=== PATIENT | female | born 1980 | race Caucasian/White ===

== ENCOUNTER 2017-05-21 10:28 | Emergency (ER) | payer OTHER ==
[~2017-05-21] VITALS: Ht 152.4 cm; Wt 64.9 kg
[2017-05-21 11:39] LABS: CALCIUM 8.3 mg/dL (8.5-10.1); CARBON DIOXIDE 26.5 mmol/L (21-32); CHLORIDE SERUM 105 mmol/L (98-107); CREATININE SERUM 0.8 mg/dL (0.6-1.0); GFR1 > 60 mL/min; GLUCOSE SERUM 88 mg/dL (74-106); POTASSIUM SERUM 3.3 mmol/L (3.5-5.1); SODIUM SERUM 136 mmol/L (136-145)
[2017-05-21 11:43] LABS: ALBUMIN 3.5 g/dL (3.4-5.0); ALKALINE PHOSPHATASE 67 U/L (46-116); ALT/SGPT 16 U/L (14-59); AST/SGOT 15 U/L (15-37); BILIRUBIN TOTAL 0.6 mg/dL (0.20-1.00); LIPASE 97 IU/L (73-393); TOTAL PROTEIN, SERUM 7.3 g/dL (6.4-8.2)
[2017-05-21 12:45] VITALS: BP 120/71
== END 2017-05-21 12:45 | disposition home or self-care (01) ==
LOC: ED 10:28
PROVIDERS: Emergency Medicine
DX: B34.9 Viral infection, unspecified (principal); E87.6 Hypokalemia
CPT/HCPCS: 36415; Q0162

== ENCOUNTER 2018-03-18 20:02 | Emergency (ER) | payer OTHER ==
[~2018-03-18] VITALS: Ht 152.4 cm; Wt 68.5 kg
[2018-03-18 20:06] VITALS: Ht 152.4 cm; Wt 68.5 kg
[2018-03-18 21:15] VITALS: BP 128/78
== END 2018-03-18 21:15 | disposition home or self-care (01) ==
LOC: ED 20:02
DX: M54.5 Low back pain (principal)
CPT/HCPCS: J1885

== ENCOUNTER 2018-06-06 17:53 | Emergency (ER) | payer OTHER ==
[~2018-06-06] VITALS: Ht 152.4 cm; Wt 66.7 kg
[2018-06-06 18:01] VITALS: Ht 152.4 cm; Wt 66.7 kg
[2018-06-06 19:26] LABS: CALCIUM 9.3 mg/dL (8.5-10.1); CARBON DIOXIDE 23.1 mmol/L (21-32); CHLORIDE SERUM 105 mmol/L (98-107); CREATININE SERUM 0.8 mg/dL (0.6-1.0); GFR1 > 60 mL/min; GLUCOSE SERUM 81 mg/dL (74-106); POTASSIUM SERUM 3.5 mmol/L (3.5-5.1); SODIUM SERUM 139 mmol/L (136-145)
[2018-06-06 19:49] VITALS: BP 119/73
== END 2018-06-06 19:49 | disposition home or self-care (01) ==
LOC: ED 17:53
PROVIDERS: Emergency Medicine
DX: G44.209 Tension-type headache, unspecified, not intractable (principal); K29.20 Alcoholic gastritis without bleeding
CPT/HCPCS: J0780; J1885; J7030

== ENCOUNTER 2018-12-08 21:14 | Emergency (ER) | payer OTHER ==
[~2018-12-08] VITALS: Ht 152.4 cm; Wt 69.4 kg
[2018-12-08 21:26] VITALS: Ht 152.4 cm; Wt 69.4 kg
[2018-12-08 22:33] LABS: BASOPHIL % 0.3 % (0-2); PLATELET COUNT 388 x10^3mcL (130-400); RED CELL DISTRIBUTION WIDTH 13.6 % (11.5-14.5)
[2018-12-08 22:40] LABS: CALCIUM 9.2 mg/dL (8.5-10.1); CARBON DIOXIDE 32.5 mmol/L (21-32); CHLORIDE SERUM 104 mmol/L (98-107); CREATININE SERUM 0.8 mg/dL (0.6-1.0); GFR1 > 60 mL/min; GLUCOSE SERUM 82 mg/dL (74-106); SODIUM SERUM 141 mmol/L (136-145)
[2018-12-08 22:45] LABS: ALBUMIN 3.9 g/dL (3.4-5.0); ALKALINE PHOSPHATASE 67 U/L (46-116); ALT/SGPT 23 U/L (14-59); AST/SGOT 12 U/L (15-37); BILIRUBIN TOTAL 0.43 mg/dL (0.20-1.00); LIPASE 149 IU/L (73-393)
[2018-12-08 23:12] VITALS: BP 128/73
== END 2018-12-08 23:18 | disposition home or self-care (01) ==
LOC: ED 21:14
PROVIDERS: Emergency Medicine
DX: K29.70 Gastritis, unspecified, without bleeding (principal); E87.6 Hypokalemia
CPT/HCPCS: 36415

== ENCOUNTER 2019-04-11 22:55 | Emergency (ER) | payer OTHER ==
[~2019-04-11] VITALS: Ht 152.4 cm; Wt 67.1 kg
[2019-04-11 23:04] VITALS: Ht 152.4 cm; Wt 67.1 kg
[2019-04-12 00:04] VITALS: BP 126/70
== END 2019-04-12 00:04 | disposition left against medical advice (07) ==
LOC: ED 22:55
DX: Z53.21 Procedure and treatment not carried out due to patient leaving prior to being seen by health care provider (principal)

== ENCOUNTER 2019-04-12 00:06 | Emergency (ER) | payer OTHER ==
[~2019-04-12] VITALS: Ht 152.4 cm; Wt 68.9 kg
[2019-04-12 00:11] VITALS: Ht 152.4 cm; Wt 68.9 kg
[2019-04-12 01:41] LABS: BASOPHIL % 0.2 % (0-2); PLATELET COUNT 373 x10^3mcL (130-400); RED CELL DISTRIBUTION WIDTH 13.6 % (11.5-14.5)
[2019-04-12 01:49] LABS: CALCIUM 9.5 mg/dL (8.5-10.1); CARBON DIOXIDE 28.1 mmol/L (21-32); CREATININE SERUM 1.1 mg/dL (0.6-1.0); POTASSIUM SERUM 3.7 mmol/L (3.5-5.1)
[2019-04-12 01:55] LABS: ALBUMIN 3.8 g/dL (3.4-5.0); BILIRUBIN TOTAL 0.22 mg/dL (0.20-1.00); TOTAL PROTEIN, SERUM 7.6 g/dL (6.4-8.2)
[2019-04-12 02:35] VITALS: BP 127/77
== END 2019-04-12 02:35 | disposition home or self-care (01) ==
LOC: ED 00:06
PROVIDERS: Specialist
DX: K80.50 Calculus of bile duct without cholangitis or cholecystitis without obstruction (principal); M54.6 Pain in thoracic spine
CPT/HCPCS: 36415; 72072; J1885; J3010; Q0092; Q0162

== ENCOUNTER 2019-10-04 18:21 | Emergency (ER) | payer OTHER ==
[~2019-10-04] VITALS: Ht 152.4 cm; Wt 70.3 kg
[2019-10-04 18:31] VITALS: BP 135/86
== END 2019-10-04 18:43 | disposition home or self-care (01) ==
LOC: ED 18:21
DX: J11.1 Influenza due to unidentified influenza virus with other respiratory manifestations (principal)